=== PATIENT | male | born 1960 | race Caucasian/White ===

== ENCOUNTER 2021-08-23 11:12 | Emergency (ER) | payer OTHER ==
[~2021-08-23] VITALS: Ht 167.6 cm; Wt 79.5 kg
[~2021-08-23 11:12] MED LIST: NOCURR
[2021-08-23] MEDS ORDERED: KETOROLAC TROMETHAMINE 30 MG/ML VIAL IM ONE (12:15)
[2021-08-23] MEDS ORDERED: ACETAMINOPHEN 500 MG TABLET PO ONE (12:15)
[2021-08-23] MEDS ORDERED: METHOCARBAMOL 500 MG TABLET PO ONE (12:15)
[2021-08-23 13:24] VITALS: BP 138/77
[2021-08-23] MEDS ORDERED: METH-659 PO (13:52)
[2021-08-23] MEDS ORDERED: TRAM50TA4 PO (13:52)
== END 2021-08-23 14:27 | disposition home or self-care (01) ==
LOC: EMS 11:12
DX: S83.91XA Sprain of unspecified site of right knee, initial encounter (principal); S20.221A Contusion of right back wall of thorax, initial encounter; S50.01XA Contusion of right elbow, initial encounter; S40.011A Contusion of right shoulder, initial encounter; Y04.2XXA Assault by strike against or bumped into by another person, initial encounter; Y93.89 Activity, other specified; Y92.89 Other specified places as the place of occurrence of the external cause; Y99.8 Other external cause status
CPT/HCPCS: 72125; 72128; 73564; 96372; 99284; J1885